=== PATIENT | female | born 1955 | race Caucasian/White ===

== ENCOUNTER 2016-07-06 13:04 | Outpatient (CLI) | payer OTHER | END 2016-07-06 13:05 | disposition home or self-care (01) | DX: M81.0 Age-related osteoporosis without current pathological fracture (principal) ==

== ENCOUNTER 2016-07-06 13:05 | Outpatient (CLI) | payer OTHER | END 2016-07-06 13:06 | disposition home or self-care (01) | DX: Z12.31 Encounter for screening mammogram for malignant neoplasm of breast (principal); Z80.3 Family history of malignant neoplasm of breast ==

== ENCOUNTER 2016-09-03 11:36 | Outpatient (CLI) | payer OTHER | END 2016-09-03 11:37 | disposition home or self-care (01) | DX: M81.0 Age-related osteoporosis without current pathological fracture (principal); Z79.899 Other long term (current) drug therapy ==

== ENCOUNTER 2018-01-10 08:51 | Outpatient (CLI) | payer OTHER ==
--- NOTE | 2018-01-13 13:04 | Mammography Report ---
Procedure Date: 01/10/2018 Accession Number: [id number] / [id number] Procedure: MGN - Screening Mammo Dig Bilat CPT Code: FULL RESULT: EXAM: Screening Mammo Dig Bilat DATE: 01/10/2018 9:17 AM CLINICAL HISTORY: 62-year-old female with family history of breast cancer in the mother at age 64, the aunt at age 40. TECHNIQUE: Bilateral CC and MLO views were obtained. Left exaggerated CC view was also obtained. COMPARISON: 07/06/2016, 1 62,015, 12/24/2011, 12/07/2009. FINDINGS: The breasts demonstrate heterogeneously dense fibroglandular parenchyma bilaterally. No suspicious masses, clustered microcalcifications, or regions of architectural distortion are identified. IMPRESSION: Negative examination RECOMMENDATION: Routine annual screening unless otherwise clinically indicated. BIRADS CATEGORY 1: Negative STANDARD QUALIFYING STATEMENTS: 1. This examination was reviewed with the aid of Computer-Aided Detection (CAD). 2. A negative or benign imaging report should not delay biopsy if clinically suspicious findings are present. Consider surgical consultation if warrented. More than 5% of cancers are not identified by imaging. 3. Dense breasts may obscure an underlying neoplasm.
== END 2018-01-10 08:52 | disposition home or self-care (01) ==
LOC: DI.N 08:51
PROVIDERS: ATTEND Family Medicine
DX: Z12.31 Encounter for screening mammogram for malignant neoplasm of breast (principal); Z80.3 Family history of malignant neoplasm of breast
CPT/HCPCS: 77067

== ENCOUNTER 2018-09-03 08:00 | Outpatient (CLI) | payer OTHER ==
[2018-09-03 13:15] LABS: BASOPHILS # (AUTO) 0.1 10^3/uL (0.0-0.1); BASOPHILS % (AUTO) 1.1 %; EOSINOPHILS # (AUTO) 0.1 10^3/uL (0.0-0.7); EOSINOPHILS % (AUTO) 1.8 %; HGB - HEMOGLOBIN 15.4 g/dL (12.0-16.0); LYMPHOCYTES # (AUTO) 1.4 10^3/uL (1.5-3.5); LYMPHOCYTES % (AUTO) 21.4 %; MEAN CORPUSCULAR HEMOGLOBIN 28.3 pg (27.0-31.0); MEAN CORPUSCULAR HGB CONC 33.5 g/dL (32.0-36.0); MEAN CORPUSCULAR VOLUME 84.3 fL (81.0-99.0); MEAN PLATELET VOLUME 8.6 fL (7.9-10.8); MONOCYTES # (AUTO) 0.6 10^3/uL (0.0-1.0); MONOCYTES % (AUTO) 8.6 %; NEUTROPHILS # (AUTO) 4.5 10^3/uL (1.5-6.6); NEUTROPHILS % (AUTO) 67.1 %; PLT - PLATELET COUNT 305 10^3/uL (130-450); RED BLOOD COUNT 5.45 10^6/uL (4.20-5.40); RED CELL DISTRIBUTION WIDTH 13.3 % (12.0-15.0); WHITE BLOOD COUNT 6.8 x10^3/uL (4.8-10.8)
[2018-09-03 13:47] LABS: ALBUMIN 4.1 g/dL (3.2-5.5); ALBUMIN/GLOBULIN RATIO 1.1 (1.0-2.2); ALKALINE PHOSPHATASE 71 IU/L (42-121); ALT ALANINE AMINOTRANSFERASE 17 IU/L (10-60); AST ASPARTATE AMINOTRANSFERASE 23 IU/L (10-42); BILIRUBIN,TOTAL 0.8 mg/dL (0.2-1.0); BUN - BLOOD UREA NITROGEN 18 mg/dL (6-20); CALCIUM 10.6 mg/dL (8.5-10.3); CARBON DIOXIDE - CO2 28 mmol/L (21-32); CHLORIDE 98 mmol/L (101-111); CHOL/HDL RATIO 3.1 (<4.4); CHOLESTEROL 205 mg/dL; CREATININE 0.6 mg/dL (0.4-1.0); GFR - MDRD 101 (>89); GLUCOSE 95 mg/dL (70-100); HDL CHOLESTEROL 67 mg/dL; LDL CHOLESTEROL,CALCULATED 114 mg/dL; LDL/HDL RATIO 1.7 (<4.4); SODIUM 137 mmol/L (135-145); VLDL CHOLESTEROL 24 mg/dL
== END 2018-09-03 23:59 | disposition home or self-care (01) ==
LOC: LAB.WCP 08:00
PROVIDERS: ATTEND Nurse Practitioner
DX: E78.5 Hyperlipidemia, unspecified (principal); I10 Essential (primary) hypertension
CPT/HCPCS: 36415; 80053; 80061; 83721; 85025

== ENCOUNTER 2018-09-12 08:00 | Outpatient (CLI) | payer OTHER | END 2018-09-12 23:59 | disposition home or self-care (01) | LOC: LAB.WCP 08:00 | PROVIDERS: ATTEND Nurse Practitioner | DX: R25.2 Cramp and spasm (principal); E83.52 Hypercalcemia | CPT/HCPCS: 36415; 82310; 83970 ==

== ENCOUNTER 2018-10-08 09:45 | Outpatient (CLI) | payer OTHER ==
--- NOTE | 2018-10-08 11:41 | XRAY Report ---
Reason: HIP PAIN,RIGHT/LEFT Procedure Date: 10/08/2018 Accession Number: [id number] / [id number] Procedure: WCP - Hip BILAT CPT Code: FULL RESULT: EXAM: BILATERAL HIP RADIOGRAPHY EXAM DATE: 10/08/2018 10:00 AM. CLINICAL HISTORY: Hip pain, bilateral. COMPARISON: None. TECHNIQUE: 2 views each. FINDINGS: Bones: Normal. No fractures or bone lesion. Right Hip: No dislocation. The hip joint space is mildly narrowed. Left Hip: No dislocation. The hip joint space is mildly narrowed. Soft Tissues: Normal. No soft tissue swelling. IMPRESSION: Mild bilateral degenerative hip disease, relatively symmetric. RADIA
== END 2018-10-08 09:46 | disposition home or self-care (01) ==
LOC: DI.WCP 09:45
PROVIDERS: ATTEND Family Medicine
DX: M16.0 Bilateral primary osteoarthritis of hip (principal)
CPT/HCPCS: 73521

== ENCOUNTER 2019-01-16 14:16 | Outpatient (CLI) | payer OTHER ==
--- NOTE | 2019-01-19 11:35 | Mammography Report ---
Reason: SCREENING MAMMO Procedure Date: 01/16/2019 Accession Number: [id number] / [id number] Procedure: MGN - Screening Mammo Dig Bilat CPT Code: FULL RESULT: EXAM: Screening Mammo Dig Bilat DATE: 01/16/2019 2:39 PM CLINICAL HISTORY: Routine screening. No reported personal history of breast cancer. Family history of breast cancer in mother at age 70 and aunt age 40. TECHNIQUE: (B) - Bilateral CC and MLO views were obtained. COMPARISON: 01/10/2018 through 12/24/2011 PARENCHYMAL PATTERN: (A) - The breasts demonstrate scattered fibroglandular densities bilaterally. FINDINGS: Bilateral breasts: There are no suspicious masses, calcifications, or areas of distortion. IMPRESSION: Negative examination. BI-RADS category 1. RECOMMENDATION: (ANNUAL) - Recommend routine annual screening mammography. BI-RADS CATEGORY: (1) - Negative. STANDARD QUALIFYING STATEMENTS: 1. This examination was not reviewed with the aid of Computer-Aided Detection (CAD). 2. A negative or benign imaging report should not preclude biopsy if clinically suspicious findings are present. 3. Dense breasts may obscure an underlying neoplasm. 4. This examination was reviewed without the aid of 3D breast imaging (tomosynthesis).
== END 2019-01-16 14:17 | disposition home or self-care (01) ==
LOC: DI.N 14:16
DX: Z12.31 Encounter for screening mammogram for malignant neoplasm of breast (principal); Z80.3 Family history of malignant neoplasm of breast
CPT/HCPCS: 77067

== ENCOUNTER 2019-03-17 11:47 | Outpatient (CLI) | payer OTHER ==
[2019-03-17] MEDS ORDERED: IOVERSOL 320 100 ML VIAL IVP ONE ×2 (12:02→13:16)
[2019-03-17 12:49] LABS: CALCIUM 10.6 mg/dL (8.5-10.3); CREATININE 0.7 mg/dL (0.4-1.0)
--- NOTE | 2019-03-17 14:15 | CT Report ---
Reason: VERTIGO OF CENTRAL ORIGIN, NAUSEA AND VOMITING Procedure Date: 03/17/2019 Accession Number: [id number] / [id number] Procedure: CT - ANGIO HEAD W/WO CPT Code: FULL RESULT: EXAM: CT ANGIOGRAM HEAD. CT SCAN OF THE HEAD WITHOUT AND WITH CONTRAST. EXAM DATE: 03/17/2019 01:13 PM CLINICAL HISTORY: 63-year-old woman with vertigo of central origin and nausea and vomiting. COMPARISON: None. TECHNIQUE: - CT Scan Head: Using a multidetector scanner, axial images were acquired from the foramen magnum to the skull vertex prior to and following contrast administration. - CT Angiogram: Using a multidetector scanner, high-resolution axial images were acquired from the skull base through vertex following rapid infusion of intravenous contrast. Reformats: Multiplanar MIP reformats were reconstructed. Nascet criteria used for stenosis measurement. IV Contrast: OPTI 320 80ML. In accordance with CT protocol optimization, one or more of the following dose reduction techniques were utilized for this exam: automated exposure control, adjustment of mA and/or KV based on patient size, or use of iterative reconstructive technique. FINDINGS: NONCONTRAST HEAD: Parenchyma: No evidence of acute infarct, hemorrhage, or mass lesion. Parenchyma demonstrates normal attenuation characteristics. Ventricles and Extra-axial Spaces: Ventricles are symmetric and normal in size for age. No extra-axial hemorrhage or fluid collection. Orbits: Unremarkable. Sinuses: The left maxillary sinus is completely opacified and there is hyperostosis of the surrounding blackwell, consistent with chronic sinusitis. Opacification extends into the nasal sinus and ethmoid air cells. Mastoid air cells are clear. Extracranial Soft Tissues and Bones: Soft tissues are unremarkable. No fractures. CTA HEAD: RIGHT: - Visualized Internal Carotid: Patent without significant stenosis or aneurysm. No evidence of atherosclerotic plaque along the siphon. - Anterior Cerebral: Patent without significant stenosis or aneurysm. - Middle Cerebral: Patent without significant stenosis or aneurysm. - Posterior Cerebral: Patent without significant stenosis or aneurysm. - Posterior Communicating: Not well seen. - Visualized Vertebral: Patent without significant stenosis or dissection. LEFT: - Visualized Internal Carotid: Patent without significant stenosis or aneurysm. No evidence of atherosclerotic plaque along the siphon. - Anterior Cerebral: Patent without significant stenosis or aneurysm. - Middle Cerebral: Patent without significant stenosis or aneurysm. - Posterior Cerebral: Patent without significant stenosis or aneurysm. - Posterior Communicating: Not well seen. - Visualized Vertebral: Patent without significant stenosis or dissection. CENTRAL: - Anterior Communicating: Patent. No aneurysm. - Basilar: Patent without significant stenosis, dissection, or aneurysm. POSTCONTRAST HEAD: No abnormal enhancement. IMPRESSION: CT Head: 1. No acute intracranial abnormality. Specifically, no evidence of acute infarct, hemorrhage, or mass lesion. 2. Chronic sinusitis centered in the left maxillary sinus. CTA Head: 1. Normal. No large vessel occlusion, significant vascular stenosis, or aneurysm. RADIA The call report notification system was initiated by Dr. Hector Padilla at 02:09 PM on 03/17/2019.
--- NOTE | 2019-03-17 14:16 | CT Report ---
Reason: VERTIGO OF CENTRAL ORIGIN, NAUSEA AND VOMITING Procedure Date: 03/17/2019 Accession Number: [id number] / [id number] Procedure: CT - ANGIO NECK W CPT Code: FULL RESULT: EXAM: CT ANGIOGRAM NECK EXAM DATE: 03/17/2019 01:13 PM. CLINICAL HISTORY: 63-year-old woman with vertigo of central origin and nausea and vomiting. COMPARISON: None. TECHNIQUE: Routine axial helical imaging was performed from the skull base through the aortic arch. Reconstructions: Routine multiplanar 3D MIP reconstructions. IV Contrast: OPTI 320 80ML. Evaluation of arterial stenosis is based on a NASCET method of measurement. In accordance with CT protocol optimization, one or more of the following dose reduction techniques were utilized for this exam: automated exposure control, adjustment of mA and/or KV based on patient size, or use of iterative reconstructive technique. FINDINGS: RIGHT: - Common and Internal Carotid: Patent without signficant stenosis. There is mild calcified atherosclerotic plaque at the bifurcation and along the siphon. Stenosis by NASCET criteria: 0%. No evidence of dissection. No evidence of aneurysm along intracranial ICA. - External Carotid: Unremarkable. - Vertebral: Patent without significant stenosis. No evidence of dissection. LEFT: - Common and Internal Carotid: Patent without signficant stenosis. There is mild calcified atherosclerotic plaque at the bifurcation and along the siphon. Stenosis by NASCET criteria: Approximately 30%. No evidence of dissection. No evidence of aneurysm along intracranial ICA. - External Carotid: Unremarkable. - Vertebral: Patent without significant stenosis. No evidence of dissection. SOFT TISSUES AND BONES: Visualized soft tissues are unremarkable. Lung apices are clear. No evidence of acute fracture or malalignment of the cervical spine. Multilevel degenerative changes of the cervical spine are demonstrated, greatest at C5-C6 and, to a lesser extent, C6-C7 where posterior osteophytes result in up to moderate narrowing of central canal. IMPRESSION: 1. Carotid and vertebral arteries are patent without significant stenosis or dissection. RADIA The call report notification system was initiated by Dr. Hector Padilla at 02:15 PM on 03/17/2019. ADDENDUM: 03/17/19 15:13 Dr Mendes could not be reached on the afternoon of 03/17/2019.
== END 2019-03-17 11:48 | disposition home or self-care (01) ==
LOC: DI 11:47
PROVIDERS: ATTEND Physician Assistant
DX: J32.0 Chronic maxillary sinusitis (principal); H81.4 Vertigo of central origin; R11.2 Nausea with vomiting, unspecified
CPT/HCPCS: 36415; 70496; 70498; 80048; Q9967

== ENCOUNTER 2019-04-07 11:16 | Outpatient (CLI) | payer OTHER ==
--- NOTE | 2019-04-08 09:22 | XRAY Report ---
Reason: RIGHT CERVICAL RADICULOPATHY Procedure Date: 04/07/2019 Accession Number: [id number] / [id number] Procedure: WCP - Cervical Spine 2 View CPT Code: Final Report FULL RESULT: EXAM: CERVICAL SPINE RADIOGRAPHY EXAM DATE: 04/07/2019 11:16 AM. CLINICAL HISTORY: RIGHT CERVICAL RADICULOPATHY. COMPARISONS: NECK ANGIO 03/17/2019 1:02 PM. TECHNIQUE: 3 views. FINDINGS: Alignment: Normal. No spondylolisthesis or scoliosis. Bones: The cervical vertebral bodies and posterior elements are well visualized from the skull base through C7-T1. No fractures or bone lesions. Disks: Moderate joint space narrowing with osteophytes at C5-C6 and C6-C7. Mild joint space narrowing at C4-C5. Facets: Multilevel moderate degenerative facet hypertrophy is evident. Soft Tissues: Vascular calcifications in the carotid arteries.. No prevertebral soft tissue swelling. The visualized lung apices are clear. IMPRESSION: 1. No acute cervical spine fractures. 2. Degenerative changes in the cervical spine as described above. RADIA
== END 2019-04-07 23:59 | disposition home or self-care (01) ==
LOC: DI.WCP 11:16
PROVIDERS: ATTEND Family Medicine
DX: M50.10 Cervical disc disorder with radiculopathy, unspecified cervical region (principal); M48.02 Spinal stenosis, cervical region; M25.78 Osteophyte, vertebrae
CPT/HCPCS: 72040

== ENCOUNTER 2020-05-05 10:48 | Emergency (ER) | payer OTHER ==
[2020-05-05 11:14] LABS: BASOPHILS % (AUTO) 0.5 %; EOSINOPHILS % (AUTO) 0.5 %; HGB - HEMOGLOBIN 15.1 g/dL (12.0-16.0); LYMPHOCYTES # (AUTO) 1.7 10^3/uL (1.5-3.5); LYMPHOCYTES % (AUTO) 21.8 %; MEAN CORPUSCULAR HEMOGLOBIN 26.5 pg (27.0-31.0); MEAN CORPUSCULAR HGB CONC 32.9 g/dL (32.0-36.0); MEAN CORPUSCULAR VOLUME 80.5 fL (81.0-99.0); MEAN PLATELET VOLUME 9.1 fL (7.9-10.8); MONOCYTES # (AUTO) 0.9 10^3/uL (0.0-1.0); MONOCYTES % (AUTO) 10.9 %; NEUTROPHILS # (AUTO) 5.1 10^3/uL (1.5-6.6); PLT - PLATELET COUNT 323 10^3/uL (130-450); RED CELL DISTRIBUTION WIDTH 14.4 % (12.0-15.0); WHITE BLOOD COUNT 7.8 x10^3/uL (4.8-10.8)
[2020-05-05 11:16] LABS: GLUCOSE, URINE (UA) NEGATIVE (NEGATIVE); KETONES,URINE (UA) TRACE mg/dL (NEGATIVE); LEUKOCYTE ESTERASE, URINE TRACE (NEGATIVE); NITRITE,URINE NEGATIVE (NEGATIVE); OCCULT BLOOD,URINE TRACE-INTA (NEGATIVE); PROTEIN,URINE 30 mg/dL (NEGATIVE); UROBILINOGEN,URINE 0.2 (NORMAL) E.U./dL (NORMAL)
[2020-05-05 11:22] LABS: CLARITY,URINE CLEAR (CLEAR)
[2020-05-05 11:26] LABS: BILIRUBIN,URINE NEGATIVE (NEGATIVE); ICTOTEST,URINE NEGATIVE
[2020-05-05 11:27] LABS: ALBUMIN 4.6 g/dL (3.2-5.5); ALBUMIN/GLOBULIN RATIO 1.1 (1.0-2.2); BILIRUBIN,TOTAL 0.7 mg/dL (0.2-1.0); CALCIUM 10.7 mg/dL (8.5-10.3); CREATININE 0.7 mg/dL (0.4-1.0); TOTAL PROTEIN 8.9 g/dL (6.7-8.2)
[2020-05-05] MEDS ORDERED: IOVERSOL 320 100 ML VIAL IVP ONE ×2 (11:34→13:32)
--- NOTE | 2020-05-05 11:39 | ED Physician Documentation ---
PD HPI ABD PAIN - Stated complaint Stated Complaint: STOMACH PX - Chief complaint Chief Complaint: Abd Pain - History obtained from History obtained from: Patient - History of Present Illness Timing - onset: How many days ago (2) Timing - duration: Days (2) Timing - details: Abrupt onset Pain level max: 4 Pain level now: 3 Quality: Aching Location: LLQ Radiation: No: Chest, , Lower back, Left flank, Left shoulder, Right flank, Right shoulder, Upper back Associated symptoms: Nausea. No: Fever, Vomiting, Hematemesis, Diarrhea, Constipation, Melena, Hematochezia, Dysuria Recently seen: Not recently seen - Additional information Additional information: 65-year-old female presents to the emergency department with left lower quadrant abdominal pain for the past 2 days. Nothing makes it better or worse. Described mostly as an aching pain. Nonradiating. Nothing makes it better or worse. No fever some nausea no vomiting. No diarrhea or no urinary symptoms. No vaginal bleeding. Review of Systems Constitutional: denies: Fever, Chills GI: denies: Vomiting, Diarrhea Skin: denies: Rash Musculoskeletal: denies: Neck pain, Back pain Neurologic: denies: Headache PD PAST MEDICAL HISTORY - Past Medical History Past Medical History: Yes Cardiovascular: Hypertension Respiratory: Sleep apnea Neuro: Other GI: GERD, Hiatal hernia, Cholelithiasis RECONDITIONING ASSOCIATE: None : Incontinence HEENT: None Psych: None Musculoskeletal: None Derm: None Other Past Medical History: Vertigo - Past Surgical History General: Cholecystectomy, EGD, Other - Present Medications Home Medications: Ambulatory Orders Medication Instructions Recorded Confirmed Felodipine [Felodipine ER] 2.5 mg PO DAILY 03/05/16 03/05/16 Tolterodine Tartrate [Detrol LA] 4 mg PO DAILY 03/05/16 03/05/16 diphenhydrAMINE [Benadryl] 25 mg PO ONCE PRN 03/05/16 03/05/16 raNITIdine [Zantac] 75 mg PO DAILY 03/05/16 03/05/16 - Allergies Allergies/Adverse Reactions: Allergies Allergy/AdvReac Type Severity Reaction Status Date / Time No Known Drug Allergies Allergy Verified 03/05/16 11:42 - Social History Does the pt smoke?: No Smoking Status: Never smoker Does the pt drink ETOH?: Yes Does the pt have substance abuse?: No - Immunizations Immunizations are current?: Yes PD ED PE NORMAL - Vitals Vital signs reviewed: Yes - General General: Alert and oriented X 3, No acute distress - HEENT HEENT: Moist mucous membranes - Neck Neck: Supple, no meningeal sign - Cardiac Cardiac: RRR - Respiratory Respiratory: No respiratory distress, Clear bilaterally - Abdomen Abdomen: Soft, Non tender, Non distended - Back Back: No CVA TTP - Derm Derm: Warm and dry - Neuro Neuro: Alert and oriented X 3 - Psych Psych: Normal mood, Normal affect Results - Vitals Vitals: Vital Signs - 24 hr 05/05/20 05/05/20 10:51 13:03 Temperature 37.1 C Heart Rate 86 81 Respiratory 16 18 Rate Blood Pressure 158/85 H 176/86 H O2 Saturation 95 98 Oxygen O2 Source Room air - Labs Labs: Laboratory Tests 05/05/20 05/05/20 05/05/20 11:01 11:09 11:09 WBC 7.8 RBC 5.70 H Hgb 15.1 Hct 45.9 MCV 80.5 L MCH 26.5 L MCHC 32.9 RDW 14.4 Plt Count 323 MPV 9.1 Neut # (Auto) 5.1 Lymph # (Auto) 1.7 [place] # (Auto) 0.9 Eos # (Auto) 0.0 Baso # (Auto) 0.0 Absolute Nucleated RBC 0.00 Nucleated RBC % 0.0 Sodium 137 Potassium 4.0 Chloride 99 L Carbon Dioxide 26 Anion Gap 12.0 BUN 17 Creatinine 0.7 Estimated GFR (MDRD) 84 L Glucose 116 H Calcium 10.7 H Total Bilirubin 0.7 AST 20 ALT 17 Alkaline Phosphatase 86 Total Protein 8.9 H Albumin 4.6 Globulin 4.3 H Albumin/Globulin Ratio 1.1 Lipase 28 Urine Color DARK YELLOW Urine Clarity CLEAR Urine pH 6.0 Ur Specific [place] >=1.030 H Urine Protein 30 H Urine Glucose (UA) NEGATIVE Urine Ketones TRACE Urine Occult Blood TRACE-INTA Urine Nitrite NEGATIVE Urine Bilirubin NEGATIVE Urine Urobilinogen 0.2 (NORMAL) Ur Leukocyte Esterase TRACE H Urine RBC 0-5 Urine WBC 0-3 Ur Squamous Epith Cells FEW Squamous Urine Crystals 3-5 Calcium Oxalate Urine Bacteria Few Urine Mucus Few Strands Ur Microscopic Review INDICATED Urine Culture Comments INDICATED - Rads (name of study) CT abd/pelvis Radiology: Prelim report reviewed, EMP read contemporaneously, See rad report PD MEDICAL DECISION MAKING - ED course Complexity details: reviewed results, re-evaluated patient, considered differential, d/w patient ED course: 65-year-old female with abdominal pain. Appears to have a heterogeneously enhancing mass in the left kidney, suspicious for renal cell carcinoma. Discussed with her PCP, Dr. Alex Greene who will follow-up closely with the patient and arrange urgent follow-up. Patient is well-appearing, nontoxic. Afebrile. Patient counseled regarding signs and symptoms for which I believe and urgent re-evaluation would be necessary. Patient with good understanding of and agreement to plan and is comfortable going home at this time This document was made in part using voice recognition software. While efforts are made to proofread this document, sound alike and grammatical errors may occur. CT Abd/pelvis 1. A 7.4 x 5.6 x 5.7 cm heterogeneously enhancing mass in the inferior pole of the left kidney is highly suspicious for renal cell carcinoma. No significantly enlarged lymph nodes are identified. 2. No acute abnormality is identified in the abdomen or pelvis. 3. Moderate hiatal hernia. Departure - Departure Clinical Impression: Renal mass, left Condition: Good Instructions: ED Abdominal Pain Unkn Cause Follow-Up: Alex Greene DO [Primary Care Provider] - Comments: I spoke with Dr. Greene today. She will likely see you on Saturday in clinic to arrange follow-up for the renal mass. The clinic should call you for an appointment, but if you do not hear from them by tomorrow late morning, please call the clinic. 1. A 7.4 x 5.6 x 5.7 cm heterogeneously enhancing mass in the inferior pole of the left kidney is highly suspicious for renal cell carcinoma. No significantly enlarged lymph nodes are identified. 2. No acute abnormality is identified in the abdomen or pelvis. 3. Moderate hiatal hernia.
[2020-05-05 11:52] LABS: BACTERIA,URINE Few /HPF (None Seen); MUCUS,URINE Few Strands; RBC,URINE 0-5 /HPF (0-5); SQUAMOUS EPITHELIAL CELL,UR FEW Squamous (<= Few)
[2020-05-05 11:53] LABS: CRYSTALS,URINE 3-5 Calcium Oxalate /LPF
--- NOTE | 2020-05-05 12:08 | CT Report ---
PROCEDURE: Abdomen/Pelvis W INDICATIONS: LLQ pain CONTRAST: IV CONTRAST: Optiray 320 ml: 100 PO CONTRAST: *NO PO CONTRAST TECHNIQUE: After the administration of intravenous contrast, 5 mm thick sections acquired from the diaphragms to the symphysis. 5 mm thick coronal and sagittal reformats were acquired. For radiation dose reducti on, the following was used: automated exposure control, adjustment of mA and/or kV according to malinda ent size. COMPARISON: None. FINDINGS: Image quality: Excellent. ABDOMEN: Lung bases: Lung bases are clear. Heart size is normal. Solid organs: Liver and spleen are normal in size and enhancement. Gallbladder is surgically absent . Biliary system is non dilated. Pancreas enhances normally. No adrenal nodules. A heterogeneously enhancing mass is seen in the mid to inferior pole of the left kidney measuring approximately 7.4 x 5.6 x 5.7 cm, highly suspicious for renal cell carcinoma. No involvement of the left renal vein is se en. The mass extends to the level of the perirenal fascia posterolaterally without definite involveme nt. Peritoneum and bowel: There is a moderate hiatal hernia. Bowel loops demonstrate normal wall thickne ss and caliber. No free fluid or air. Nodes and vessels: No retroperitoneal or mesenteric adenopathy by size criteria. Aorta and inferior vena cava are normal in size. Mild atherosclerotic calcifications are seen in the aorta. Miscellaneous: There is a small fat-containing periumbilical hernia. PELVIS: Genitourinary: Bladder wall thickness is normal. The uterus is normal in size. No adnexal mass is s een. Miscellaneous: No inguinal hernias or adenopathy. Bones: No suspicious bony lesions. No vertebral body compression fractures. IMPRESSION: 1. A 7.4 x 5.6 x 5.7 cm heterogeneously enhancing mass in the inferior pole of the left kidney is hi ghly suspicious for renal cell carcinoma. No significantly enlarged lymph nodes are identified. 2. No acute abnormality is identified in the abdomen or pelvis. 3. Moderate hiatal hernia. Reviewed by: Scott Hunt MD on 05/05/2020 11:06 AM [facility] Approved by: Scott Hunt MD on 05/05/2020 11:06 AM [facility] Station ID: [id number]
[2020-05-05 13:05] VITALS: BP 176/86
== END 2020-05-05 13:38 | disposition home or self-care (01) ==
LOC: ED 10:48
DX: N28.89 Other specified disorders of kidney and ureter (principal); K44.9 Diaphragmatic hernia without obstruction or gangrene; I10 Essential (primary) hypertension
CPT/HCPCS: 36415; 74177; 80053; 81001; 83690; 85025; 87086; 99284; Q9967; 81003

== ENCOUNTER 2020-05-18 11:49 | Outpatient (CLI) | payer OTHER ==
[2020-05-18] MEDS ORDERED: IOVERSOL 320 100 ML VIAL IVP ONE ×2 (12:02→18:30)
--- NOTE | 2020-05-18 15:06 | CT Report ---
PROCEDURE: CHEST W INDICATIONS: LEFT KIDNEY MASS, STAGING CONTRAST: IV CONTRAST: Optiray 320 ml: 100 PO CONTRAST: *NO PO CONTRAST TECHNIQUE: After the administration of intravenous contrast, 5 mm thick sections acquired from the pulmonary api arlene to the posterior costophrenic angles. 7 mm thick coronal MIP reformats were acquired. For radia tion dose reduction, the following was used: automated exposure control, adjustment of mA and/or kV according to patient size. COMPARISON: Abdomen/pelvis CT with contrast performed 05/05/2020 reviewed, which identified a large l eft exophytic renal mass. FINDINGS: Image quality: Excellent. Lungs and pleura: No acute air space opacities. Note is made of a small 5 x 7 mm subpleural nodule within the lateral segment right middle lobe, seen anterolaterally on CT series 4 image 204. No addit ional nodule is seen throughout the lung parenchyma. No pleural effusions or pneumothorax. Central a nd peripheral airways are patent and normal in caliber. Mediastinum: Heart size is normal. No pericardial effusion. No mediastinal or hilar adenopathy by size criteria. Thoracic aorta and central pulmonary arteries are normal in size. Esophagus is kendy l in caliber. No hiatal hernia. Bones and chest wall: No suspicious bony lesions. No vertebral body compression fractures. No axil tawny or supraclavicular adenopathy by size criteria. Thyroid gland appears normal. Abdomen: Visualized upper abdominal solid organs appear normal. Upper abdominal bowel loops are nor mal in caliber. The large mass previously documented exophytic from the lower left kidney is only pa rtially included on this study, and note is made of surrounding recruited arterial and venous structu res in the perirenal fat and above. IMPRESSION: Single far peripheral right middle lobe 5 x 7 mm nodule abutting the pleural surface is noted, as a p otential metastatic focus within the lung parenchyma, but no definite metastatic disease is present. Attention to this small nodule on follow-up CT scanning is anticipated. This study is optimized for chest visualization to complete staging CT workup-prior CT targeted to th e abdomen and pelvis was performed 05/05/2020. Reviewed by: Johnny Chandra MD on 05/18/2020 3:04 PM PST Approved by: Johnny Chandra MD on 05/18/2020 3:04 PM PST Station ID: [id number]
== END 2020-05-18 11:50 | disposition home or self-care (01) ==
LOC: DI 11:49
PROVIDERS: ATTEND Urology
DX: N28.89 Other specified disorders of kidney and ureter (principal); R91.1 Solitary pulmonary nodule
CPT/HCPCS: 71260; Q9967

== ENCOUNTER 2020-07-22 16:27 | Emergency (ER) | payer OTHER ==
[2020-07-22 16:33] VITALS: BP 175/70
--- NOTE | 2020-07-22 16:41 | ED Physician Documentation ---
PD HPI LOWER EXT INJURY - Stated complaint Stated Complaint: RIGHT ANKLE INJURY - Chief complaint Chief Complaint: Trauma Ext - History obtained from History obtained from: Patient - History of Present Illness Timing - onset: Today (She was letting her dog out and slipped and inverted the right ankle. Minor pain at rest but more significant if she tries to walk. No other injuries. 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 TESTER: None : Incontinence HEENT: None Psych: None Musculoskeletal: None Derm: None - Past Surgical History General: Cholecystectomy, EGD, Other - Present Medications Home Medications: Ambulatory Orders Medication Instructions Recorded Confirmed Felodipine [Felodipine ER] 2.5 mg PO DAILY 03/05/16 07/22/20 Tolterodine Tartrate [Detrol LA] 4 mg PO DAILY 03/05/16 07/22/20 diphenhydrAMINE [Benadryl] 25 mg PO ONCE PRN 03/05/16 07/22/20 - Allergies Allergies/Adverse Reactions: Allergies Allergy/AdvReac Type Severity Reaction Status Date / Time No Known Drug Allergies Allergy Verified 07/22/20 16:34 - Social History Does the pt smoke?: No Smoking Status: Never smoker Does the pt drink ETOH?: Yes Does the pt have substance abuse?: No - Immunizations Immunizations are current?: Yes PD ED PE NORMAL - Vitals Vital signs reviewed: Yes - General General: Alert and oriented X 3, No acute distress - HEENT HEENT: PERRL, EOMI - Neck Neck: Supple, no meningeal sign, No bony TTP - Extremities Extremities: Other (She is tender over the lateral malleolus of the right ankle as well as the proximal fifth metatarsal. There is swelling over the lateral malleolus. No medial tenderness. No knee or proximal fibular tenderness.) - Neuro Neuro: Alert and oriented X 3, Normal speech Results - Vitals Vitals: Vital Signs - 24 hr 07/22/20 16:30 Temperature 37.1 C Heart Rate 79 Respiratory 16 Rate Blood Pressure 175/70 H O2 Saturation 99 Oxygen O2 Source Room air - Rads (name of study) R ankle and R foot XRs Radiology: EMP read contemporaneously Departure - Departure Disposition: 01 Home, Self Care Clinical Impression: Ankle injury Qualifiers: Encounter type: initial encounter Laterality: right Qualified Code(s): S99.911A - Unspecified injury of right ankle, initial encounter Condition: Good Record reviewed to determine appropriate education?: Yes Instructions: ED Sprain Ankle Comments: Tylenol as needed and ice/elevate for pain. Followup with your doctor in 1 week if not better. You can wear the Aircast as needed for comfort but it is fine to come off for bathing etc. Discharge Date/Time: 07/22/20 17:34
--- NOTE | 2020-07-22 17:14 | XRAY Report ---
PROCEDURE: Ankle 3 View RT INDICATIONS: FOOT / ANKLE INJ TECHNIQUE: 3 views of the ankle were acquired. COMPARISON: None FINDINGS: Bones: No fractures or dislocations. Ankle mortise is normally aligned. No suspicious bony lesions . Soft tissues: No tibiotalar joint effusion. Achilles tendon appears normal. IMPRESSION: No osseous trauma found. Source of new pain is not seen. Mild soft tissue thickening ove r the lateral malleolus. The tendon inflammation or blunt trauma injury could explain that appearance . Reviewed by: Johnny Chandra MD on 07/22/2020 5:12 PM PST Approved by: Johnny Chandra MD on 07/22/2020 5:12 PM PST Station ID: [id number]
--- NOTE | 2020-07-22 17:15 | XRAY Report ---
PROCEDURE: Foot 3 View RT INDICATIONS: FOOT / ANKLE INJ TECHNIQUE: 3 views of the foot were acquired. COMPARISON: None FINDINGS: Bones: No fractures or dislocations. No suspicious bony lesions. Soft tissues: No tibiotalar joint effusion. Achilles tendon appears normal. Note is made of a slig ht cortical prominence at the lateral border of the base of the fifth metatarsal bone, but the 2 view s that show this indicate no evidence of trauma as the underlying cause. IMPRESSION: No trauma found. Reviewed by: Johnny Chandra MD on 07/22/2020 5:13 PM PST Approved by: Johnny Chandra MD on 07/22/2020 5:13 PM PST Station ID: [id number]
== END 2020-07-22 17:34 | disposition home or self-care (01) ==
LOC: ED 16:27
DX: S99.911A Unspecified injury of right ankle, initial encounter (principal); X50.1XXA Overexertion from prolonged static or awkward postures, initial encounter; Y93.01 Activity, walking, marching and hiking; I10 Essential (primary) hypertension
CPT/HCPCS: 99282; 99283

== ENCOUNTER 2020-09-08 08:00 | Outpatient (CLI) | payer OTHER ==
--- NOTE | 2020-09-08 14:26 | XRAY Report ---
PROCEDURE: Ankle 3 View RT INDICATIONS: LATERAL MALLEOLUS Fx TECHNIQUE: 3 views of the ankle were acquired. COMPARISON: 07/22/2020 FINDINGS: Bones: Subtle cortical irregularity involving lateral cortex of distal lateral malleolus with subtle radiolucency is seen consistent with healing nondisplaced lateral malleolus fracture. No new fracture or dislocation. Ankle mortise is normally aligned. No suspicious bony lesions. Soft tissues: No tibiotalar joint effusion. Achilles tendon appears normal. IMPRESSION: Subacute appearing nondisplaced healing nondisplaced lateral malleolus fracture with int act ankle mortise. No new fracture or dislocation. Reviewed by: Yunior Voss MD on 09/08/2020 2:24 PM PDT Approved by: Yunior Voss MD on 09/08/2020 2:24 PM PDT Station ID: [id number]
== END 2020-09-08 23:59 | disposition home or self-care (01) ==
LOC: DI.N 08:00
PROVIDERS: ATTEND Orthopaedic Surgery
DX: S82.64XD Nondisplaced fracture of lateral malleolus of right fibula, subsequent encounter for closed fracture with routine healing (principal)

== ENCOUNTER 2020-09-28 11:26 | Outpatient (CLI) | payer OTHER ==
[2020-09-28] MEDS ORDERED: IOPAMIDOL-300 50 ML VIAL ONE (11:37)
[2020-09-28] MEDS ORDERED: IOPAMIDOL-300 100 ML VIAL ONE (11:37)
--- NOTE | 2020-09-28 15:09 | CT Report ---
PROCEDURE: Abdomen/Pelvis W INDICATIONS: KIDNEY CA, L CONTRAST: IV CONTRAST: Isovue 300 ml: 100 PO CONTRAST: Isovue 300 ml50 TECHNIQUE: After the administration of oral and intravenous contrast, 5 mm thick sections acquired from the diap hragms to the symphysis. 5 mm thick coronal and sagittal reformats were acquired. For radiation dos e reduction, the following was used: automated exposure control, adjustment of mA and/or kV accordin g to patient size. COMPARISON: 05/05/2020 FINDINGS: Image quality: Excellent. ABDOMEN: Lung bases: Lung bases are clear. Heart size is normal. Solid organs: Liver and spleen are normal in size and enhancement. Gallbladder is surgically absent . Moderate hiatal hernia. Biliary system is non dilated. Pancreas enhances normally. No adrenal no dules. Interval left nephrectomy. No evidence of residual or recurrent carcinoma in the left renal fo ssa. Peritoneum and bowel: Bowel loops demonstrate normal wall thickness and caliber. No free fluid or a ir. Nodes and vessels: No retroperitoneal or mesenteric adenopathy by size criteria. Aorta and inferior vena cava are normal in size. Miscellaneous: Periumbilical hernia containing fat. PELVIS: Genitourinary: Bladder wall thickness is normal. Miscellaneous: No inguinal hernias or adenopathy. Bones: No suspicious bony lesions. No vertebral body compression fractures. IMPRESSION: 1. Interval left nephrectomy with no evidence of locally recurrent or residual tumor and no evidence of metastatic disease in the abdomen and pelvis. Please refer to a separate report for CT chest findings. Reviewed by: Edson Lopez MD on 09/28/2020 3:08 PM PDT Approved by: Edson Lopez MD on 09/28/2020 3:08 PM PDT Station ID: [id number]
== END 2020-09-28 11:27 | disposition home or self-care (01) ==
LOC: DI 11:26
PROVIDERS: ATTEND Internal Medicine
DX: Z90.5 Acquired absence of kidney (principal); R91.1 Solitary pulmonary nodule; C64.2 Malignant neoplasm of left kidney, except renal pelvis; R91.8 Other nonspecific abnormal finding of lung field; K44.9 Diaphragmatic hernia without obstruction or gangrene; I25.10 Atherosclerotic heart disease of native coronary artery without angina pectoris
CPT/HCPCS: 36415; 71260; 74177; 82565; Q9967

== ENCOUNTER 2020-09-28 11:29 | Outpatient (CLI) | payer OTHER ==
[2020-09-28 11:53] LABS: CREATININE 0.8 mg/dL (0.4-1.0)
[2020-09-28] MEDS ORDERED: IOPAMIDOL-300 100 ML VIAL IVP ONE (16:48)
[2020-09-28] MEDS ORDERED: IOPAMIDOL-300 50 ML VIAL PO ONE (16:48)
--- NOTE | 2020-10-03 17:07 | CT Report ---
PROCEDURE: CHEST W INDICATIONS: PULMONARY NODULE CONTRAST: IV CONTRAST: Isovue 300 ml: 100 PO CONTRAST: Isovue 300 ml50 TECHNIQUE: After the administration of intravenous contrast, 5 mm thick sections acquired from the pulmonary api arlene to the posterior costophrenic angles. 7 mm thick coronal MIP reformats were acquired. For radia tion dose reduction, the following was used: automated exposure control, adjustment of mA and/or kV according to patient size. COMPARISON: None. FINDINGS: Image quality: Excellent. Lungs and pleura: Stable ill-defined 3 mm pulmonary nodule, right upper lobe, current image 124/3 and previous image 13 3/4. Stable 4 x 7 mm pleural-based right middle lobe pulmonary nodule, current image 197/3 and previous im age 203/4. No acute air space opacities. No pleural effusions or pneumothorax. Central and peripher al airways are patent and normal in caliber. Mediastinum: Heart size is normal. No pericardial effusion. Moderate coronary artery calcifications . No mediastinal or hilar adenopathy by size criteria. Thoracic aorta and central pulmonary arteries are normal in size. Esophagus is normal in caliber. Moderate hiatal hernia. Bones and chest wall: No suspicious bony lesions. No vertebral body compression fractures. No axil tawny or supraclavicular adenopathy by size criteria. Thyroid gland unremarkable as visualized. Abdomen: Visualized upper abdominal solid organs appear normal. Upper abdominal bowel loops are nor mal in caliber. IMPRESSION: 1. There are 2 right lung pulmonary nodules, which are unchanged in size. It may potentially represen t benign pulmonary nodules. However, 6 month follow-up CT is suggested. 2. Moderate hiatal hernia. 3. Coronary artery disease. Reviewed by: Edson Lopez MD on 09/28/2020 3:16 PM PDT Approved by: Edson Lopez MD on 09/28/2020 3:16 PM PDT Station ID: [id number]
== END 2020-09-28 11:30 | disposition home or self-care (01) ==
LOC: LAB 11:29
PROVIDERS: ATTEND Family Medicine
DX: R91.1 Solitary pulmonary nodule (principal); C64.2 Malignant neoplasm of left kidney, except renal pelvis; R91.8 Other nonspecific abnormal finding of lung field; K44.9 Diaphragmatic hernia without obstruction or gangrene; I25.10 Atherosclerotic heart disease of native coronary artery without angina pectoris
CPT/HCPCS: 36415; 82565

== ENCOUNTER 2020-10-04 08:30 | Outpatient (CLI) | payer OTHER ==
--- NOTE | 2020-10-04 15:09 | Nuclear Medicine Report ---
PROCEDURE: Bone Whole Body INDICATIONS: LT KIDNEY CA RADIOPHARMACEUTICAL: 26.9 mCi Tc-99m MDP IV. TECHNIQUE: Delayed whole-body scintigrams were obtained approximately 3-4 hours after intravenous injection of r adiotracer. Anterior and posterior views were acquired from vertex to feet. Additional left and rig ht oblique views of the calvarium were obtained. COMPARISON: 3 view right ankle 09/08/2020 and 07/22/2020. FINDINGS: Relative intense radiotracer uptake identified in the left maxillary sinus and left ethmoi d air cells which may be due to sinusitis, however infiltrating neoplasm cannot be excluded by Accertifya HEXIO bone scan. Foci of increased radiotracer uptake identified in the mid cervical spine and a t the right T9 and T10 costovertebral junctions which may present osteoarthritis. Focus of intense ra diotracer uptake identified in the lateral left sixth rib which could be posttraumatic or neoplastic. Increased radiotracer uptake identified in the right ankle compatible with known traumatic injury. N o abnormal soft tissue uptake. There is absence of tracer uptake identified in the left kidney compat ible with prior left nephrectomy. IMPRESSION: 1. Abnormal radiotracer uptake involving the left maxillary sinus and ethmoid air cells likely relate d to sinusitis, however CT scan of the sinuses recommended to exclude infiltrating neoplasm. 2. Increased radiotracer uptake involving the cervical spine and thoracic spine likely related to ost eoarthritis, however correlation with plain from radiographs is recommended to exclude metastatic dis ease. 3. Small focus of increased radiotracer activity in the left sixth rib which could be posttraumatic o r neoplastic. Recommend correlation with plain from radiographs. Reviewed by: Paige Sanders MD, PhD on 10/04/2020 3:08 PM PDT Approved by: Paige Sanders MD, PhD on 10/04/2020 3:08 PM PDT Station ID: [id number]
== END 2020-10-04 08:31 | disposition home or self-care (01) ==
LOC: DI 08:30
PROVIDERS: ATTEND Internal Medicine
DX: C64.2 Malignant neoplasm of left kidney, except renal pelvis (principal); R93.7 Abnormal findings on diagnostic imaging of other parts of musculoskeletal system
CPT/HCPCS: 78306

== ENCOUNTER 2021-05-02 08:09 | Outpatient (CLI) | payer OTHER ==
--- NOTE | 2021-05-03 14:49 | Mammography Report ---
BILATERAL DIGITAL SCREENING MAMMOGRAM 3D/2D: 05/02/2021 CLINICAL: Family history of breast cancer. Routine screening. Comparison is made to exams dated: 01/16/2019 mammogram, 01/10/2018 mammogram, and 07/06/2016 mammogram - [facility]. There are scattered fibroglandular elements in both breasts. No significant masses, calcifications, or other findings are seen in either breast. There has been no significant interval change. IMPRESSION: NEGATIVE There is no mammographic evidence of malignancy. A 1 year screening mammogram is recommended. This exam was interpreted at Station ID: [id number]. NOTE: For mammograms, a report in lay terms will be sent to the patient. Approximately 15% of breast malignancies will not be visualized mammographically. In the management of a palpable breast mass, a negative mammogram must not discourage biopsy of a clinically suspicious lesion. Electronically Signed By: Scott Hunt M.D. ar/penrad:05/02/2021 08:56:58 ACR BI-RADS Category 1: Negative 3341F PARENCHYMAL PATTERN: (A) - The breast(s) demonstrate(s) scattered fibroglandular densities. BI-RADS CATEGORY: (1) - 1 RECOMMENDATION: (ANNUAL) - Recommend routine annual screening mammography. [id number] 1 year screening LATERALITY: (B)
== END 2021-05-02 08:10 | disposition home or self-care (01) ==
LOC: DI.N 08:09
PROVIDERS: ATTEND Internal Medicine
DX: Z12.31 Encounter for screening mammogram for malignant neoplasm of breast (principal); Z80.3 Family history of malignant neoplasm of breast

== ENCOUNTER 2021-05-05 11:51 | Day surgery (SDC) | payer OTHER ==
[2021-05-05] MEDS ORDERED: LACTATED RINGERS 1,000 ML IV ONE ×2 (12:20→14:03)
--- NOTE | 2021-05-05 12:53 | ANESTHESIA ---
Pre-Anesthesia VS, & Labs - Diagnosis hx of polyps - Procedure colonoscopy Vital Signs: Temp Pulse Resp BP Pulse Ox 37 C 96 19 152/95 H 98 05/05/21 12:07 05/05/21 12:07 05/05/21 12:07 05/05/21 12:07 05/05/21 12:07 Height: 5 ft Weight (kg): 67.6 kg Body Mass Index: 29.0 BMI Classification: Overweight - NPO >8 hours - Is Patient ?: No Home Medications and Allergies Home Medications: Ambulatory Orders Calcium Carbonate [Calcium] 600 mg PO BID 05/02/21 Cranberry Fruit Extract [Cranberry] 500 mg PO BID 05/02/21 Cyanocobalamin (Vitamin B-12) [Vitamin B-12] 1,000 mcg PO DAILY 05/02/21 Lactobacillus Combination No.4 [Probiotic] 1 each PO DAILY 05/02/21 Meclizine HCl [Motion Sickness] 25 mg PO TID PRN 05/02/21 Melatonin 30 mg PO QPM 05/02/21 Omeprazole 20 mg PO DAILY 05/02/21 Papaya Enzyme 1 tab PO DAILY 05/02/21 Turmeric Root Extract [Turmeric] 500 mg PO DAILY 05/02/21 Felodipine [Felodipine ER] 2.5 mg PO DAILY 03/05/16 Tolterodine Tartrate [Detrol LA] 4 mg PO DAILY 03/05/16 diphenhydrAMINE [Benadryl] 25 mg PO BID 03/05/16 Calcium Carbonate [Calcium] 600 mg PO BID 05/02/21 Cranberry Fruit Extract [Cranberry] 500 mg PO BID 05/02/21 Cyanocobalamin (Vitamin B-12) [Vitamin B-12] 1,000 mcg PO DAILY 05/02/21 Lactobacillus Combination No.4 [Probiotic] 1 each PO DAILY 05/02/21 Meclizine HCl [Motion Sickness] 25 mg PO TID PRN 05/02/21 Melatonin 30 mg PO QPM 05/02/21 Omeprazole 20 mg PO DAILY 05/02/21 Papaya Enzyme 1 tab PO DAILY 05/02/21 Turmeric Root Extract [Turmeric] 500 mg PO DAILY 05/02/21 Allergies/Adverse Reactions: Allergies Allergy/AdvReac Type Severity Reaction Status Date / Time No Known Drug Allergies Allergy Verified 05/05/21 12:19 Anes History & Medical History - Anesthetic History Anesthesia Complications: reports: No previous complications Family history of Anesthesia Complications: Denies Family history of Malignant Hyperthermia: Denies - Medical History Cardiovascular: reports: Hypertension Pulmonary: reports: Sleep apnea Gastrointestinal: reports: GERD, Cholelithiasis Urinary: reports: Incontinence, Other Neuro: reports: Other Musculoskeletal: reports: None Endocrine/Autoimmune: reports: None Skin: reports: None Smoking Status: Former smoker - Surgical History General: reports: Cholecystectomy, Colonoscopy, EGD, Other Urologic: reports: Nephrectomy Exam General: Alert, Oriented x3, Cooperative Dental: WNL Mouth Openin Fingerbreadth Neck Mobility: Normal Mallampati classification: II Thyromental Distance: 4-6 cm Respiratory: Lungs clear Cardiovascular: Regular rate Plan Anesthesia Type: Total IV Consent for Procedure(s) Verified and Reviewed: Yes Code Status: Attempt Resuscitation ASA classification: 2-Mild systemic disease Is this case an emergency?: No
[2021-05-05] MEDS ORDERED: PROPOFOL 200 MG/20 ML VIAL IVP ONE ×2 (13:15→13:16)
[2021-05-05] MEDS ORDERED: ONDANSETRON 4 MG/2 ML VIAL ONE (13:16)
[2021-05-05] MEDS ORDERED: METOCLOPRAMIDE 10 MG/2 ML VIAL ONE (14:17)
[2021-05-05 14:40] VITALS: BP 138/87
--- NOTE | 2021-05-05 15:16 | ANESTHESIA POST OP EVALUATION ---
Anesthesia Post Eval - Post Anesthesia Eval Vitals: Last Vital Signs Temp 36.3 C L 05/05/21 14:30 Pulse 78 05/05/21 14:30 Resp 17 05/05/21 14:30 BP 138/87 H 05/05/21 14:30 Pulse Ox 100 05/05/21 14:30 CV Function Including HR & BP: Stable Pain Control: Satisfactory Nausea & Vomiting: Negative Mental Status: Baseline Respiratory Status: Airway Patent Hydration Status: Satisfactory Anesthesia Complications: None
== END 2021-05-05 11:52 | disposition home or self-care (01) ==
LOC: SDS 11:51
PROVIDERS: ATTEND Surgery
PROC: 0DBL8ZX Excision of Transverse Colon, Via Natural or Artificial Opening Endoscopic, Diagnostic (ICD-10-PCS; principal; 2021-05-05 13:15)
DX: Z12.11 Encounter for screening for malignant neoplasm of colon (principal); D12.3 Benign neoplasm of transverse colon; G47.33 Obstructive sleep apnea (adult) (pediatric); Z87.891 Personal history of nicotine dependence
CPT/HCPCS: 45380; J2765; J7120

== ENCOUNTER 2021-07-14 06:36 | Outpatient (CLI) | payer OTHER ==
--- NOTE | 2021-07-14 09:40 | Ultrasound Report ---
PROCEDURE: Head or Neck Soft Tissue INDICATIONS: LYMPHADENOPATHY TECHNIQUE: Real time scanning was performed of the neck region of interest, with image documentation . COMPARISON: None. FINDINGS: There are multiple normal appearing cervical lymph nodes. All of these lymph nodes are none nlarged, measuring less than 8 mm in short axis diameter. There is no abnormal thickening of the jocelyne ex. The cortices remain hypoechoic. There is preservation of the fatty jeremy in the lymph nodes bilate rally. IMPRESSION: No sonographic evidence of lymphadenopathy. Numerous normal-appearing and nonenlarged lymph nodes are seen bilaterally. If there is continued clinical concern for neck mass or cervical lymphadenopathy, a CT of the neck with IV contrast would be recommended. Reviewed by: Gabino Salazar MD on 07/14/2021 9:38 AM PST Approved by: Gabino Salazar MD on 07/14/2021 9:38 AM PST Station ID: [id number]
== END 2021-07-14 06:37 | disposition home or self-care (01) ==
LOC: DI 06:36
PROVIDERS: ATTEND Internal Medicine
DX: R59.0 Localized enlarged lymph nodes (principal)

== ENCOUNTER 2021-10-04 08:00 | Outpatient (CLI) | payer OTHER ==
[2021-10-04 15:12] LABS: BASOPHILS % (AUTO) 0.5 %; EOSINOPHILS # (AUTO) 0.1 10^3/uL (0.0-0.7); EOSINOPHILS % (AUTO) 1.9 %; HCT - HEMATOCRIT 38.1 % (37.0-47.0); HGB - HEMOGLOBIN 12.6 g/dL (12.0-16.0); LYMPHOCYTES % (AUTO) 30.7 %; MEAN CORPUSCULAR HEMOGLOBIN 26.8 pg (27.0-31.0); MEAN CORPUSCULAR HGB CONC 33.1 g/dL (32.0-36.0); MEAN CORPUSCULAR VOLUME 80.9 fL (81.0-99.0); MEAN PLATELET VOLUME 9.5 fL (7.9-10.8); MONOCYTES # (AUTO) 0.9 10^3/uL (0.0-1.0); MONOCYTES % (AUTO) 13.5 %; NEUTROPHILS # (AUTO) 3.4 10^3/uL (1.5-6.6); NEUTROPHILS % (AUTO) 53.2 %; PLT - PLATELET COUNT 268 10^3/uL (130-450); RED BLOOD COUNT 4.71 10^6/uL (4.20-5.40); RED CELL DISTRIBUTION WIDTH 14.5 % (12.0-15.0); WHITE BLOOD COUNT 6.4 x10^3/uL (4.8-10.8)
[2021-10-04 15:27] LABS: ALBUMIN 3.6 g/dL (3.2-5.5); ALBUMIN/GLOBULIN RATIO 1.1 (1.0-2.2); BILIRUBIN,TOTAL 0.4 mg/dL (0.2-1.0); CALCIUM 8.5 mg/dL (8.5-10.3); CREATININE 0.8 mg/dL (0.4-1.0); POTASSIUM 3.5 mmol/L (3.5-5.0); TOTAL PROTEIN 6.8 g/dL (6.7-8.2)
== END 2021-10-06 13:02 | disposition home or self-care (01) ==
LOC: LAB 08:00
PROVIDERS: ATTEND Internal Medicine
DX: R91.1 Solitary pulmonary nodule (principal); D75.1 Secondary polycythemia
CPT/HCPCS: 36415; 80053; 82668; 82728; 83540; 84466; 85025

== ENCOUNTER 2021-10-19 07:56 | Day surgery (SDC) | payer OTHER ==
[~2021-10-19 07:56] MED LIST: CEFAZOLIN SODIUM IN 0.9 % NACL 2 GM/50 ML BAG IV ONE
[2021-10-19] MEDS ORDERED: LACTATED RINGERS 1,000 ML IV ONE ×2 (08:16→10:37)
--- NOTE | 2021-10-19 08:48 | ANESTHESIA ---
Pre-Anesthesia VS, & Labs - Diagnosis abdominal incision hernia - Procedure repair of abdominal incisional hernia with mesh Vital Signs: Temp Pulse Resp BP Pulse Ox 36.6 C 90 24 157/89 H 100 10/19/21 08:10 10/19/21 08:10 10/19/21 08:10 10/19/21 08:10 10/19/21 08:10 Height: 5 ft Weight (kg): 69 kg Body Mass Index: 29.7 BMI Classification: Overweight - NPO >8 hours - Is Patient ?: No Home Medications and Allergies Felodipine [Felodipine ER] 2.5 mg PO DAILY 03/05/16 Tolterodine Tartrate [Detrol LA] 4 mg PO DAILY 03/05/16 diphenhydrAMINE [Benadryl] 25 mg PO BID 03/05/16 Calcium Carbonate [Calcium] 600 mg PO BID 05/02/21 Cranberry Fruit Extract [Cranberry] 500 mg PO BID 05/02/21 Cyanocobalamin (Vitamin B-12) [Vitamin B-12] 1,000 mcg PO DAILY 05/02/21 Lactobacillus Combination No.4 [Probiotic] 1 each PO DAILY 05/02/21 Meclizine HCl [Motion Sickness] 25 mg PO TID PRN 05/02/21 Melatonin 30 mg PO QPM 05/02/21 Omeprazole 20 mg PO DAILY 05/02/21 Papaya Enzyme 1 tab PO DAILY 05/02/21 Turmeric Root Extract [Turmeric] 500 mg PO DAILY 05/02/21 Allergies/Adverse Reactions: Allergies Allergy/AdvReac Type Severity Reaction Status Date / Time No Known Drug Allergies Allergy Verified 05/05/21 12:19 Anes History & Medical History - Anesthetic History Anesthesia Complications: reports: No previous complications, Post-Operative Nausea/Vomiting - Medical History Cardiovascular: reports: Hypertension Pulmonary: reports: Sleep apnea (does not use cpap) Gastrointestinal: reports: GERD (controlled with med) Urinary: reports: Incontinence, Other (s/p nephrecomy for cancer) Neuro: reports: None Musculoskeletal: reports: None Endocrine/Autoimmune: reports: None Blood Disorders: reports: None Skin: reports: None Smoking Status: Former smoker (quit 20 years ago) Psychosocial: reports: No issues indicated History of Cancer?: Yes (kidney. no chemo or radiation) - Surgical History General: reports: Cholecystectomy, Colonoscopy, EGD, Other Urologic: reports: Nephrectomy Exam General: Alert, Oriented x3, Cooperative, No acute distress Dental: WNL Mouth Openin Fingerbreadth Neck Mobility: Normal Mallampati classification: II Thyromental Distance: 4-6 cm Mental/Cognitive Status: Alert/Oriented X3, Normal for patient Plan Anesthesia Type: General Consent for Procedure(s) Verified and Reviewed: Yes Code Status: Attempt Resuscitation ASA classification: 3-Severe systemic disease Is this case an emergency?: No
[2021-10-19] MEDS ORDERED: ATROPINE ABBOJECT 1 MG/10 ML SYRINGE IVP PRN (08:52)
[2021-10-19] MEDS ORDERED: ONDANSETRON 4 MG/2 ML VIAL IVP PRN ×2 (08:52→10:40)
[2021-10-19] MEDS ORDERED: MORPHINE 2 MG/ML CARPUJECT IVP PRN (08:52)
[2021-10-19] MEDS ORDERED: HYDROmorphone 0.5 MG/0.5 ML SYRINGE IVP PRN ×2 (08:52→10:40)
[2021-10-19] MEDS ORDERED: NALOXONE 0.4 MG/ML VIAL IVP PRN (08:52)
[2021-10-19] MEDS ORDERED: fentaNYL 100 MCG/2 ML VIAL IVP PRN (08:52)
[2021-10-19] MEDS ORDERED: LACTATED RINGERS 1,000 ML IV SCH (09:00)
[2021-10-19] MEDS ORDERED: SCOPOLAMINE PATCH TOP SCH (09:00)
[2021-10-19] MEDS ORDERED: BUPIVACAINE 0.5% PF 30 ML VIAL INFIL ONE (09:02)
[2021-10-19] MEDS ORDERED: SCOPOLAMINE PATCH TOP ONE (09:06)
--- NOTE | 2021-10-19 09:06 | HISTORY & PHYSICAL EXAMINATION ---
Chief Complaint - Chief Complaint Chief Complaint: painful hernia bulge History of Present Illness - History Obtained From Records Reviewed: yes History obtained from: pt Exam Limitations: none - History of Present Illness HPI Comment/Other: history renal cancer and nephrectomy. symptomatic and enlarging hernia at and above her umbilicus History - Past Medical History Cardiovascular: reports: Hypertension Respiratory: reports: Sleep apnea (does not use cpap) Neuro: reports: None Endocrine/Autoimmune: reports: None GI: reports: GERD (controlled with med) [employer]: reports: None : reports: Incontinence, Other (s/p nephrecomy for cancer) HEENT: reports: Chronic vision loss Psych: reports: None Musculoskeletal: reports: None Derm: reports: None MRSA Hx?: No - Past Surgical History General: reports: Cholecystectomy, Colonoscopy, EGD, Other - POLST Patient has POLST: No Meds/Allgy - Home Medications Home Medications: Ambulatory Orders Medication Instructions Recorded Confirmed Felodipine [Felodipine ER] 2.5 mg PO DAILY 03/05/16 10/19/21 Tolterodine Tartrate [Detrol LA] 4 mg PO DAILY 03/05/16 10/19/21 diphenhydrAMINE [Benadryl] 25 mg PO BID 03/05/16 10/19/21 Calcium Carbonate [Calcium] 600 mg PO BID 05/02/21 10/12/21 Cranberry Fruit Extract [Cranberry] 500 mg PO BID 05/02/21 10/12/21 Cyanocobalamin (Vitamin B-12) 1,000 mcg PO DAILY 05/02/21 10/12/21 [Vitamin B-12] Lactobacillus Combination No.4 1 each PO DAILY 05/02/21 10/12/21 [Probiotic] Meclizine HCl [Motion Sickness] 25 mg PO TID PRN 05/02/21 10/12/21 Melatonin 30 mg PO QPM 05/02/21 10/12/21 Omeprazole 20 mg PO DAILY 05/02/21 10/12/21 Papaya Enzyme 1 tab PO DAILY 05/02/21 10/12/21 Turmeric Root Extract [Turmeric] 500 mg PO DAILY 05/02/21 10/12/21 - Allergies Allergies/Adverse Reactions: Allergies Allergy/AdvReac Type Severity Reaction Status Date / Time No Known Drug Allergies Allergy Verified 05/05/21 12:19 Review of Systems - Other Findings Other Findings: 10 pt ros as above otherwise unremarkable Exam - Vital Signs Reviewed Vital Signs: Yes Vital Signs: Vital Signs x48h Temp Pulse Resp BP Pulse Ox 10/19/21 08:10 36.6 C 90 24 157/89 H 100 - Physical Exam General Appearance: positive: No acute distress, Alert Eyes Bilateral: positive: PERRL, EOMI ENT: positive: No signs of dehydration Neck: positive: No JVD, Trachea midline Respiratory: positive: No respiratory distress, Breath sounds nml Cardiovascular: positive: Regular rate & rhythm Abdomen: positive: Other (6 cm periumbilical incisional hernia) Neurologic/Psychiatric: positive: Oriented x3 Conclusion/Plan - Problem List (1) Incisional hernia Conclusion/Plan: plan open repair with mesh parq held and consent obtained
[2021-10-19] MEDS ORDERED: LIDOCAINE-MPF 2% 5 ML VIAL ONE (09:07)
[2021-10-19] MEDS ORDERED: MIDAZOLAM 2 MG/2 ML VIAL ONE (09:07)
[2021-10-19] MEDS ORDERED: ROCURONIUM 50 MG/5 ML VIAL ONE (09:07)
[2021-10-19] MEDS ORDERED: PROPOFOL 200 MG/20 ML VIAL IVP ONE (09:07)
[2021-10-19] MEDS ORDERED: fentaNYL 100 MCG/2 ML VIAL ONE (09:07)
[2021-10-19] MEDS ORDERED: BUPIVACAINE 0.5% PF 30 ML VIAL ONE (09:13)
[2021-10-19] MEDS ORDERED: DEXAMETHASONE 4 MG/ML VIAL ONE (09:58)
[2021-10-19] MEDS ORDERED: SUGAMMADEX 200 MG/2 ML VIAL IVP ONE (10:24)
[2021-10-19] MEDS ORDERED: HYDROcod/ACETAM 5/325 MG TABLET PO PRN (10:40)
--- NOTE | 2021-10-19 11:10 | OPERATIVE REPORT ---
Operative Report - General Procedure Date: 10/19/21 Planned Procedure: open incisional hernia repair with mesh Pre-Op Diagnosis: incisional hernia Procedure Performed: open incisional hernia repair with mesh Post Op Diagnosis: incisional hernia - Procedure Note Primary Surgeon: windy holbrook Anesthesia Technique: General ET tube, Local Pathology: none Estimated Blood Loss (mL): 1 Drain/Tube Type: Other (none) Indications: painful hernia bulge Findings: 3 x 4 cm defect Complications: none - Other Other Information/Narrative: The patient was properly identified brought to the operating room and placed in supine position. General endotracheal anesthesia was induced. Sequential compression devices were placed. She was prepped and draped in a sterile f ashion and given preoperative antibiotics. She had a symptomatic periumbilical hernia. She had no symptoms cephalad. There was no palpable hernia cephalad. An elliptical 5 cm incision was made around the stretched umbilical skin. The hernia sac was mobilized away from surrounding subcutaneous tissue. The hernia sac measured nearly 6 cm of. Fascial defect measured approximately 3 cm cephalad by 5 cm lateral the preperitoneal space was carefully developed. Umbilical skin was sharply excised and removed. Hole in the peritoneum was closed with a running 3-0 Vicryl suture. Approximately 2-3/4 wide by 3 inch tall polypropylene mesh was placed preperitoneal. It was secured with multiple interrupted 0 Tycron sutures. Fascia was closed transversely over the mesh with additional interrupted 0 Tycron sutures. Mesh lay in good position without tension. Subcutaneous tissue was closed in layers with interrupted 2-0 Vicryl suture. Buried interrupted subdermal 3-0 Vicryl sutures were then placed. Skin was closed with a running 4-0 Monocryl subcuticular suture. Steri-Strips and dressing were applied. She tolerated procedure well was awakened and brought to recovery in good condition.
--- NOTE | 2021-10-19 11:58 | ANESTHESIA POST OP EVALUATION ---
Anesthesia Post Eval - Post Anesthesia Eval Vitals: Last Vital Signs Temp 36.7 C 10/19/21 11:48 Pulse 79 10/19/21 11:48 Resp 13 10/19/21 11:48 BP 154/80 H 10/19/21 11:48 Pulse Ox 95 10/19/21 11:48 CV Function Including HR & BP: Stable Pain Control: Satisfactory Nausea & Vomiting: Negative Mental Status: Baseline Respiratory Status: Airway Patent Hydration Status: Satisfactory Anesthesia Complications: None
[2021-10-19 14:30] VITALS: BP 154/77
== END 2021-10-19 14:50 | disposition home or self-care (01) ==
LOC: SDS 07:56 → MS3 11:00 → SDS 14:50
PROVIDERS: ATTEND Surgery
DX: K43.2 Incisional hernia without obstruction or gangrene (principal); G47.30 Sleep apnea, unspecified; Z90.5 Acquired absence of kidney; Z87.891 Personal history of nicotine dependence; Z85.528 Personal history of other malignant neoplasm of kidney
CPT/HCPCS: 49560; 49568; C1781; J0690; J3490; J7120

== ENCOUNTER 2022-04-23 14:31 | Outpatient (CLI) | payer OTHER ==
--- NOTE | 2022-04-24 12:15 | Mammography Report ---
BILATERAL DIGITAL SCREENING MAMMOGRAM 3D/2D: 04/23/2022 CLINICAL: Family history of breast cancer. Routine screening. Comparison is made to exams dated: 05/02/2021 mammogram, 01/16/2019 mammogram, 01/10/2018 mammogram, mammogram, 06/18/2014 mammogram, and 12/24/2011 mammogram - [facility]. There are scattered areas of fibroglandular density in both breasts (category b / 25%-50% glandular t issue). There is a new 0.5 cm round equal density focal asymmetry in the right breast at 7 o'clock posterior depth. No other significant masses, calcifications, or other findings are seen in either breast. IMPRESSION: INCOMPLETE: NEEDS ADDITIONAL IMAGING EVALUATION The new 0.5 cm round equal density focal asymmetry in the right breast is indeterminate. Additional views with possible ultrasound are recommended. Based on the Tyrer Cuzick model (a risk assessment model) the patients lifetime risk is 11.3% and he r 10 year risk is 5.7%. According to the ACR, ACS, and NCCN guidelines, an annual breast MRI exam keyshawn ng with mammogram is recommended if the patients lifetime risk is 20% or greater. This exam was interpreted at Station ID: [id number]. NOTE: For mammograms, a report in lay terms will be sent to the patient. Approximately 15% of breast malignancies will not be visualized mammographically. In the management of a palpable breast mass, a negative mammogram must not discourage biopsy of a clinically suspicious lesion. Electronically Signed By: Tolu Howard M.D. aty/:04/24/2022 07:37:36 ACR BI-RADS Category 0: Incomplete 3340F PARENCHYMAL PATTERN: (A) - The breast(s) demonstrate(s) scattered fibroglandular densities. BI-RADS CATEGORY: (0) - 0 Mammo and [place] [id number] Immediate follow-up LATERALITY: (R)
== END 2022-04-23 14:32 | disposition home or self-care (01) ==
LOC: DI.N 14:31
PROVIDERS: ATTEND Nurse Practitioner Family
DX: Z12.31 Encounter for screening mammogram for malignant neoplasm of breast (principal); R92.8 Other abnormal and inconclusive findings on diagnostic imaging of breast; Z80.3 Family history of malignant neoplasm of breast

== ENCOUNTER 2022-05-11 10:48 | Outpatient (CLI) | payer OTHER ==
--- NOTE | 2022-05-14 12:56 | Mammography Report ---
UNILATERAL RIGHT DIGITAL DIAGNOSTIC MAMMOGRAM 3D/2D: 05/11/2022 CLINICAL: Patient returns today to evaluate a focal asymmetry in the right breast. Comparison is made to exams dated: 04/23/2022 mammogram, 05/02/2021 mammogram, 01/16/2019 mammogram, 01/10/2018 mammogram, and 07/06/2016 mammogram - [facility]. There are scattered areas of fibroglandular density in the right breast (category b / 25%-50% glandul ar tissue). There is a new 5 mm round, equal density focal asymmetry in the right breast at 8 o'clock middle dept h with a smooth margin. This is seen in additional views. No other significant masses or calcifications are seen in the breast. IMPRESSION: INCOMPLETE: NEEDS ADDITIONAL IMAGING EVALUATION The focal asymmetry in the right breast remains indeterminate. An ultrasound is recommended. This w as performed immediately following this exam. Based on the Tyrer Cuzick model (a risk assessment model) the patients lifetime risk is 11.3% and he r 10 year risk is 5.7%. According to the ACR, ACS, and NCCN guidelines, an annual breast MRI exam keyshawn ng with mammogram is recommended if the patients lifetime risk is 20% or greater. This exam was interpreted at Station ID: [id number]. NOTE: For mammograms, a report in lay terms will be sent to the patient. Approximately 15% of breast malignancies will not be visualized mammographically. In the management of a palpable breast mass, a negative mammogram must not discourage biopsy of a clinically suspicious lesion. Electronically Signed By: Lucero reed/:05/11/2022 11:21:17 ACR BI-RADS Category 0: Incomplete 3340F PARENCHYMAL PATTERN: (A) - The breast(s) demonstrate(s) scattered fibroglandular densities. BI-RADS CATEGORY: (0) - 0 Ultrasound [id number] Immediate follow-up LATERALITY: (B)
--- NOTE | 2022-05-14 12:56 | Ultrasound Report ---
LIMITED ULTRASOUND OF RIGHT BREAST AND AXILLA: 05/11/2022 CLINICAL: Patient returns today to evaluate a focal asymmetry in the right breast. Patient returns to day to evaluate a focal asymmetry in the right breast. Comparison is made to exams dated: 04/23/2022 mammogram, 05/02/2021 mammogram, 01/16/2019 mammogram, 01/10/2018 mammogram, 07/06/2016 mammogram, and 06/18/2014 mammogram - [facility]. Color flow and real-time ultrasound of the right breast 8-9 o'clock, and axilla regions were performe d. Mondragon scale images of the real-time examination were reviewed. There is a 0.5 cm x 0.5 cm x 0.5 cm round mass with a circumscribed margin in the right breast at 8 o 'clock posterior depth 10 cm from the nipple. This round mass is hypoechoic with a hyperechoic halo, and no posterior acoustic shadowing or enhancement. This correlates with mammography findings. Col or flow imaging demonstrates that there is increased internal vascularity. No significant abnormalities were seen sonographically in the right axilla. IMPRESSION: SUSPICIOUS OF MALIGNANCY The 0.5 cm x 0.5 cm x 0.5 cm round mass in the right breast is suspicious of malignancy. An ultrasou nd guided biopsy is recommended. No axillary adenopathy. Findings and recommendations were discussed with the patient by Dr. Scott Hunt in person at time of exam. This exam was interpreted at Station ID: [id number]. Electronically Signed By: Lucero reed/:05/11/2022 12:13:02 Ultrasound BI-RADS: 4 Suspicious for malignancy BI-RADS CATEGORY: (4) - 4 Biopsy [id number] Immediate follow-up LATERALITY: (R)
== END 2022-05-11 10:49 | disposition home or self-care (01) ==
LOC: DI 10:48
PROVIDERS: ATTEND Nurse Practitioner Family
DX: N63.13 Unspecified lump in the right breast, lower outer quadrant (principal)

== ENCOUNTER 2022-05-21 12:29 | Outpatient (CLI) | payer OTHER ==
[~2022-05-21 12:29] MED LIST changes: -CEFAZOLIN SODIUM IN 0.9 % NACL 2 GM/50 ML BAG IV ONE; +LIDOCAINE 1%-EPI 1:100000 20 ML MDV ONE; +LIDOCAINE-MPF 1% 5 ML VIAL ONE
[2022-05-21] MEDS ORDERED: LIDOCAINE 1%-EPI 1:100000 20 ML MDV ONE (12:59)
[2022-05-21] MEDS ORDERED: LIDOCAINE-MPF 1% 5 ML VIAL TD ONE (13:45)
[2022-05-21] MEDS ORDERED: LIDOCAINE 1%-EPI 1:100000 20 ML MDV SUBQ ONE (13:47)
--- NOTE | 2022-05-22 12:56 | Mammography Report ---
UNILATERAL RIGHT DIGITAL DIAGNOSTIC MAMMOGRAM POST-PROCEDURE IMAGING FOR MARKER PLACEMENT: 05/21/2022 CLINICAL: Post right breast ultrasound biopsy clip placement imaging. Comparison is made to exams dated: 05/11/2022 mammogram, 04/23/2022 mammogram, 05/02/2021 mammogram, and 01/16/2019 mammogram - [facility]. There are scattered areas of fibroglandular density in the right breast (category b / 25%-50% glandul ar tissue). There is a marker clip in the appropriate position in the right breast at 8 o'clock posterior depth. This marker clip placement is at the biopsy site. This correlates with ultrasound findings and the biopsy. IMPRESSION: POST PROCEDURE MAMMOGRAM FOR MARKER PLACEMENT There was a successful marker clip placement in the right breast posterior depth. Based on the Tyrer Cuzick model (a risk assessment model) the patients lifetime risk is 11.3% and he r 10 year risk is 5.7%. According to the ACR, ACS, and NCCN guidelines, an annual breast MRI exam keyshawn ng with mammogram is recommended if the patients lifetime risk is 20% or greater. This exam was interpreted at Station ID: [id number]. NOTE: For mammograms, a report in lay terms will be sent to the patient. Approximately 15% of breast malignancies will not be visualized mammographically. In the management of a palpable breast mass, a negative mammogram must not discourage biopsy of a clinically suspicious lesion. Electronically Signed By: Tolu Howard M.D. aty/naomirad:05/21/2022 17:36:42 ACR BI-RADS Category Post-procedure mammogram for marker placement PARENCHYMAL PATTERN: (A) - The breast(s) demonstrate(s) scattered fibroglandular densities. BI-RADS CATEGORY: () - Unspecified - other recall n/a LATERALITY: (B)
--- NOTE | 2022-05-29 10:16 | Ultrasound Report ---
ULTRASOUND GUIDED BIOPSY RIGHT BREAST WITH MARKING DEVICE INSERTED AND POST MAMMOGRAPHIC IMAGIN CLINICAL: Right breast mass. PATIENT CONSENT: Risks (minor bleeding, infection, vasovagal reaction and repeat procedure), benefits and alternatives were explained to the patient and written informed consent was obtained. Correlation is made to exams dated: 05/11/2022 ultrasound, 05/11/2022 mammogram, 04/23/2022 mammogram, 05/02/2021 mammogram, 01/16/2019 mammogram, and 01/10/2018 mammogram - [facility]. An ultrasound guided biopsy using real-time ultrasound was performed for the 0.5 cm x 0.5 cm x 0.5 cm oval mass located in the right breast at 8 o'clock posterior depth 10 cm from the nipple. This was described on the previous ultrasound report. The skin was prepped in the usual manner. Local anesth etic was administered to the access site. The abnormality was approached from the lateral aspect. A 16 gauge biopsy needle was placed adjacent to the abnormality under ultrasound guidance. Once the n eedle was documented to be in the correct location, four specimens were obtained using the Awareness Card opsy device. A clip was inserted into the biopsy cavity. A sterile dressing was applied to the acce ss site. Post procedure mammographic imaging demonstrates the location device at the targeted area. The specimens were sent to the laboratory for pathological analysis. IMPRESSION: ULTRASOUND GUIDED BIOPSY MALIGNANT Ultrasound guided biopsy of the 0.5 cm x 0.5 cm x 0.5 cm mass in the right breast at 8 o'clock rehabilitation aide/scheduler ior depth 10 cm from the nipple was successful. Pathology indicates malignant metastastic renal cell carcinoma. Pathology results are concordant with imaging findings. A chemo-oncology consultation is recommended. This exam was interpreted at Station ID: [id number]. Tolu serrano,/:05/24/2022 15:50:42 BI-RADS CATEGORY: () - Unspecified - other recall n/a LATERALITY: (B)
== END 2022-05-21 12:30 | disposition home or self-care (01) ==
LOC: DI 12:29
PROVIDERS: ATTEND Nurse Practitioner Family
DX: C79.81 Secondary malignant neoplasm of breast (principal); C64.9 Malignant neoplasm of unspecified kidney, except renal pelvis
CPT/HCPCS: 19083

== ENCOUNTER 2022-06-06 07:15 | Outpatient (CLI) | payer OTHER ==
[2022-06-06] MEDS ORDERED: LACTATED RINGERS 1,000 ML IV ONE ×2 (07:36→09:37)
[2022-06-06] MEDS ORDERED: LIDOCAINE-MPF 1% 5 ML VIAL ONE (07:51)
[2022-06-06 08:01] LABS: INR 0.9 (0.8-1.2); PT - PROTHROMBIN TIME 10.4 secs (9.9-12.6)
[2022-06-06 08:08] LABS: PARTIAL THROMBOPLASTIN TIME 32.6 secs (24.9-33.3)
[2022-06-06] MEDS ORDERED: MIDAZOLAM 2 MG/2 ML VIAL ONE ×2 (08:18→08:27)
[2022-06-06] MEDS ORDERED: fentaNYL 100 MCG/2 ML VIAL ONE (08:18)
[2022-06-06] MEDS ORDERED: ONDANSETRON 4 MG/2 ML VIAL ONE (08:25)
--- NOTE | 2022-06-06 09:53 | XRAY Report ---
PROCEDURE: Chest 1 View X-Ray INDICATIONS: POST CT LUNG BIOPSY TECHNIQUE: One view of the chest was acquired. COMPARISON: None. FINDINGS: Surgical changes and devices: None. Lungs and pleura: There is a small to moderate-sized right pneumothorax. No airspace consolidation o r pleural effusions. Mediastinum: Mediastinal contours appear normal. Heart size is normal. Bones and chest wall: No suspicious bony lesions. Overlying soft tissues appear unremarkable. IMPRESSION: Small to moderate right pneumothorax after CT-guided lung biopsy. Reviewed by: Sommer Page MD on 06/06/2022 9:51 AM [facility] Approved by: Sommer Page MD on 06/06/2022 9:51 AM [facility] Station ID: [id number]
[2022-06-06] MEDS ORDERED: LIDOCAINE-MPF 1% 5 ML VIAL TD ONE (10:23)
--- NOTE | 2022-06-06 10:58 | XRAY Report ---
PROCEDURE: Chest x-ray INDICATIONS: POST CT LUNG BIOPSY TECHNIQUE: Single view of the chest was acquired COMPARISON: Single view the chest dated 06/06/2022 at 8:59 AM FINDINGS: Right pneumothorax is redemonstrated and is likely slightly increased in size from the prior study. N o other acute pulmonary findings. IMPRESSION: Findings suspicious for slight increase in the size of the right pneumothorax when compared with the prior study. Reviewed by: Sommer Page MD on 06/06/2022 10:56 AM [facility] Approved by: Sommer Page MD on 06/06/2022 10:56 AM [facility] Station ID: [id number]
[2022-06-06 11:06] VITALS: BP 129/73
--- NOTE | 2022-06-06 14:08 | CT Report ---
PROCEDURE: RT LUNG BX PERC Sedation analgesia for 30 minutes. INDICATIONS: RUL LUNG MASS TECHNIQUE: The indications, alternatives, benefits, risks, and possible complications of the procedure were comm unicated to the patient. Informed written consent from the patient was obtained and placed in the art. Continuous EKG and hemodynamic monitoring was started by trained personnel. For radiation dose reduction, the following was used: automated exposure control, adjustment of mA and/or kV according to patient size. The patient was brought to the CT suite and orientation and mobility specialist spiral CT imaging was performed with localization g rid. The appropriate site for percutaneous access to the biopsy target was marked, was prepped and d raped sterilely, and was infused with local anaesthesia. Under CT guidance, a core biopsy trocar and needle set was advanced to the biopsy target, and specimen(s) were obtained. The trocar and needle were then removed, and the patient was sent for post-procedure monitoring. COMPARISON: CT of the chest dated 05/15/2022 FINDINGS: Biopsy site: Right lung Needle: 20 gauge biopsy needle with introducer trocar. Number of passes: 4 Medications: 1% lidocaine for local anaesthesia. IV Fentanyl and Versed for conscious sedation for 30 minutes (see nursing record). Complications: Small to moderate pneumothorax. IMPRESSION: Successful CT-guided biopsy of a right lung nodule. Reviewed by: Sommer Page MD on 06/06/2022 2:06 PM PST Approved by: Sommer Page MD on 06/06/2022 2:06 PM PST Station ID: [id number]
== END 2022-06-06 07:16 | disposition home or self-care (01) ==
LOC: DI 07:15
PROVIDERS: ATTEND Internal Medicine
DX: R91.1 Solitary pulmonary nodule (principal); J95.811 Postprocedural pneumothorax; C64.2 Malignant neoplasm of left kidney, except renal pelvis
CPT/HCPCS: 32408; 36415; 85610; 85730

== ENCOUNTER 2022-06-12 09:37 | Outpatient (CLI) | payer OTHER ==
--- NOTE | 2022-06-12 15:55 | XRAY Report ---
PROCEDURE: Chest 2 View X-Ray INDICATIONS: PNEUMOTHORAX TECHNIQUE: 2 views of the chest were acquired. COMPARISON: 06/08/2022, 06/07/2022, 06/06/2022. FINDINGS: Surgical changes and devices: There is interval removal of right-sided chest tube. Surgical clips are seen in right upper quadrant abdomen.. Lungs and pleura: No pleural effusions or pneumothorax. Lungs are clear. Mediastinum: Mediastinal contours are normal. Heart size is enlarged. Bones and chest wall: No suspicious bony abnormalities. Soft tissues appear unremarkable. IMPRESSION: Interval removal of right-sided chest tube. No gross pneumothorax is seen on the current study. No fo gurmeet infiltrate, or pleural effusion. Reviewed by: Yunior Voss MD on 06/12/2022 3:54 PM PST Approved by: Yunior Voss MD on 06/12/2022 3:54 PM PST Station ID: [id number]
== END 2022-06-12 09:38 | disposition home or self-care (01) ==
LOC: DI 09:37
PROVIDERS: ATTEND Surgery
DX: J93.9 Pneumothorax, unspecified (principal)

== ENCOUNTER 2022-09-19 11:56 | Outpatient (CLI) | payer OTHER ==
--- NOTE | 2022-09-19 17:46 | XRAY Report ---
PROCEDURE: Chest 2 View X-Ray INDICATIONS: CRACKLING IN LUNGS TECHNIQUE: 2 views of the chest were acquired. COMPARISON: None. FINDINGS: Surgical changes and devices: None. Lungs and pleura: Mild hyperinflation and chronic interstitial changes Mediastinum: Mediastinal contours appear normal. Heart size is normal. Bones and chest wall: No suspicious bony lesions. Overlying soft tissues appear unremarkable. IMPRESSION: No acute cardiopulmonary findings Reviewed by: Darius Diaz MD on 09/19/2022 4:45 PM [facility] Approved by: Darius Diaz MD on 09/19/2022 4:45 PM [facility] Station ID: [id number]
== END 2022-09-19 11:57 | disposition home or self-care (01) ==
LOC: DI 11:56
PROVIDERS: ATTEND Internal Medicine Hematology & Oncology
DX: R09.89 Other specified symptoms and signs involving the circulatory and respiratory systems (principal)

== ENCOUNTER 2023-09-11 08:00 | Outpatient (CLI) | payer OTHER | END 2023-09-11 23:59 | disposition home or self-care (01) | LOC: PC 08:00 | PROVIDERS: ATTEND Nurse Practitioner Adult Health | DX: Z51.5 Encounter for palliative care (principal); C78.00 Secondary malignant neoplasm of unspecified lung; C79.81 Secondary malignant neoplasm of breast; Z85.528 Personal history of other malignant neoplasm of kidney; N76.0 Acute vaginitis; K12.31 Oral mucositis (ulcerative) due to antineoplastic therapy; T45.1X5A Adverse effect of antineoplastic and immunosuppressive drugs, initial encounter; Z90.5 Acquired absence of kidney; R53.83 Other fatigue; F41.9 Anxiety disorder, unspecified; Z79.899 Other long term (current) drug therapy; Z60.0 Problems of adjustment to life-cycle transitions | CPT/HCPCS: 99215 ==

== ENCOUNTER 2023-10-23 14:10 | Outpatient (CLI) | payer MEDICARE, OTHER | END 2023-10-23 23:59 | disposition home or self-care (01) | LOC: PC 14:10 | PROVIDERS: ATTEND Nurse Practitioner Adult Health | DX: Z51.5 Encounter for palliative care (principal); C64.2 Malignant neoplasm of left kidney, except renal pelvis; C78.00 Secondary malignant neoplasm of unspecified lung; C79.81 Secondary malignant neoplasm of breast; T45.1X5A Adverse effect of antineoplastic and immunosuppressive drugs, initial encounter; K12.31 Oral mucositis (ulcerative) due to antineoplastic therapy; R53.83 Other fatigue; M54.9 Dorsalgia, unspecified; R25.2 Cramp and spasm | CPT/HCPCS: 99215 ==

== ENCOUNTER 2023-11-01 08:00 | Outpatient (CLI) | payer MEDICARE, OTHER | END 2023-11-01 23:59 | disposition home or self-care (01) | LOC: PC 08:00 | PROVIDERS: ATTEND Nurse Practitioner Adult Health | DX: Z51.5 Encounter for palliative care (principal); C79.00 Secondary malignant neoplasm of unspecified kidney and renal pelvis | CPT/HCPCS: 99426 ==

== ENCOUNTER 2023-11-13 08:00 | Outpatient (CLI) | payer MEDICARE, OTHER | END 2023-11-13 23:59 | disposition home or self-care (01) | LOC: PC 08:00 | PROVIDERS: ATTEND Nurse Practitioner Adult Health | DX: Z51.5 Encounter for palliative care (principal); C64.2 Malignant neoplasm of left kidney, except renal pelvis; C78.00 Secondary malignant neoplasm of unspecified lung; C79.81 Secondary malignant neoplasm of breast; R07.89 Other chest pain; M54.9 Dorsalgia, unspecified; R05.3 Chronic cough; R53.83 Other fatigue; Z79.899 Other long term (current) drug therapy | CPT/HCPCS: 99215 ==

== ENCOUNTER 2023-11-25 12:46 | Outpatient (CLI) | payer MEDICARE, OTHER | END 2023-11-25 23:59 | disposition critical access hospital (66) | LOC: EMS 12:46 | DX: R04.0 Epistaxis (principal); Z79.01 Long term (current) use of anticoagulants | CPT/HCPCS: A0425; A0429 ==

== ENCOUNTER 2023-11-25 13:05 | Emergency (ER) | payer MEDICARE, OTHER ==
--- NOTE | 2023-11-25 14:13 | ED Physician Documentation ---
History of Present Illness - Stated complaint Stated Complaint: NOSEBLEED - Chief complaint Chief Complaint: Heent - History obtained from History obtained from: Patient - History of Present Illness Timing: Today Pain level max: 0 Pain level now: 0 - Additonal information Additional information: Patient is a 68-year-old female who recently got placed on Plavix after having stents for an DE. She states she has had bruising since that time. She states today she had a nosebleed at home, initially stopped with pressure, but when she bent over again started to have the bleeding again. The nosebleed is on the right side. No pain. No lightheadedness or dizziness. No shortness of breath. Has not had similar symptoms previously. She was brought in by EMS. There is no active bleeding at this time. Has a nose clamp on. 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: None : Incontinence, Other HEENT: Chronic vision loss Psych: None Musculoskeletal: None Derm: None - Past Surgical History Past Surgical History: Yes General: Cholecystectomy, Colonoscopy, EGD, Other Cardiovascular: Coronary stent - Present Medications Home Medications: Ambulatory Orders Medication Instructions Recorded Confirmed Felodipine [Felodipine ER] 5 mg PO DAILY 03/05/16 08/28/23 Tolterodine Tartrate [Detrol LA] 4 mg PO DAILY 03/05/16 08/28/23 Calcium Carbonate [Calcium] 600 mg PO BID 05/02/21 08/28/23 Cranberry Fruit Extract [Cranberry] 500 mg PO BID 05/02/21 08/28/23 Cyanocobalamin (Vitamin B-12) 1,000 mcg PO DAILY 05/02/21 08/28/23 [Vitamin B-12] Lactobacillus Combination No.4 1 each PO DAILY 05/02/21 08/28/23 [Probiotic] Meclizine HCl [Motion Sickness] 25 mg PO TID PRN 05/02/21 08/28/23 Melatonin 30 mg PO QPM 05/02/21 08/28/23 Omeprazole 20 mg PO DAILY 05/02/21 08/28/23 Turmeric Root Extract [Turmeric] 500 mg PO DAILY 05/02/21 08/28/23 Losartan Potassium 25 mg PO DAILY 06/06/22 08/28/23 ondansetron HCL [Ondansetron HCl] 8 mg PO BID PRN #30 tablet 08/01/22 08/28/23 Lenvatinib Mesylate [Lenvima] 10 mg PO DAILY 10/03/22 08/28/23 dexAMETHasone [Dexamethasone] 0.5 mg PO Q6H PRN 30 Days #600 ml 03/27/23 08/28/23 Codeine Phosphate/Guaifenesin 5 ml PO Q6H PRN 7 Days #140 ml 05/15/23 08/28/23 [Codeine-Guaifen 10-100 mg/5 ml] - Allergies Allergies/Adverse Reactions: Allergies Allergy/AdvReac Type Severity Reaction Status Date / Time No Known Drug Allergies Allergy Verified 11/25/23 13:25 - Social History Does the pt smoke?: No Smoking Status: Never smoker Does the pt drink ETOH?: Yes Does the pt have substance abuse?: No - Immunizations Immunizations are current?: Yes - POLST Patient has POLST: No PD ED PE NORMAL - Vitals Vital signs reviewed: Yes - General General: Alert and oriented X 3, No acute distress - HEENT HEENT: Moist mucous membranes, Pharynx benign, Other (small amount of dried blood in the R nare. No active bleeding. ) - Neck Neck: Supple, no meningeal sign - Cardiac Cardiac: RRR, Strong equal pulses - Respiratory Respiratory: No respiratory distress, Clear bilaterally - Derm Derm: Warm and dry - Neuro Neuro: Alert and oriented X 3 - Psych Psych: Normal mood, Normal affect Results - Vitals Vitals: Oxygen O2 Source Room air PD Medical Decision Making - ED course Complexity details: re-evaluated patient, considered differential, d/w patient ED course: Patient with epistaxis today. No active bleeding in the emergency department. She was given Afrin and tranexemic acid. Pressure was applied to the nose in the emergency department. Observed with no further bleeding. No indication for cauterization. Patient is on Plavix, recommend that she use a small amount of Vaseline in the nose to help moisturize her nose. Patient counseled regarding signs and symptoms for which I believe an urgent re-evaluation would be necessary. Patient with good understanding of and agreement to plan and is comfortable going home at this time. This document was made in part using voice recognition software. While efforts are made to proofread this document, sound alike and grammatical errors may occur. Departure - Departure Disposition: 01 Home, Self Care Clinical Impression: Epistaxis Condition: Good Instructions: ED Nosebleed Follow-Up: Liz Martinez ARNP [Primary Care Provider] - As Needed Comments: Please follow-up with your doctor for further care. Do not blow or pick your nose for the next 2 days as this will likely dislodge the clot and could cause recurrent bleeding. I would recommend using Afrin for the next 2 days. Use this twice a day. You can also put small amounts of Vaseline in your nose to help moisten the area. Please return if you worsen. Forms: PCP List Discharge Date/Time: 11/25/23 15:32
[2023-11-25] MEDS: TRANEXAMIC ACID 1,000 MG/10 ML VIAL NAS STA (14:22)
[2023-11-25] MEDS: OXYMETAZOLINE HCL 100 SPRAYS BOTTLE NAS STA (14:23)
[2023-11-25 15:38] VITALS: BP 130/88; O2SAT 98
== END 2023-11-25 15:32 | disposition home or self-care (01) ==
LOC: EDUNIT# → ED 13:05
DX: R04.0 Epistaxis (principal); Z79.02 Long term (current) use of antithrombotics/antiplatelets
CPT/HCPCS: 99281; 99283; A9270

== ENCOUNTER 2023-12-01 08:00 | Outpatient (CLI) | payer MEDICARE, OTHER | END 2023-12-01 23:59 | disposition home or self-care (01) | LOC: PC 08:00 | PROVIDERS: ATTEND Nurse Practitioner Adult Health | DX: Z51.5 Encounter for palliative care (principal); C64.9 Malignant neoplasm of unspecified kidney, except renal pelvis | CPT/HCPCS: 99426 ==

== ENCOUNTER 2023-12-30 08:00 | Outpatient (CLI) | payer MEDICARE, OTHER | END 2023-12-30 23:59 | disposition home or self-care (01) | LOC: PC 08:00 | PROVIDERS: ATTEND Nurse Practitioner Adult Health | DX: Z51.5 Encounter for palliative care (principal); C79.81 Secondary malignant neoplasm of breast; C78.00 Secondary malignant neoplasm of unspecified lung; Z85.528 Personal history of other malignant neoplasm of kidney; Z92.29 Personal history of other drug therapy; I25.2 Old myocardial infarction; Z79.899 Other long term (current) drug therapy; Z79.02 Long term (current) use of antithrombotics/antiplatelets; Z79.82 Long term (current) use of aspirin; R20.0 Anesthesia of skin; R53.83 Other fatigue; M25.551 Pain in right hip; J32.9 Chronic sinusitis, unspecified; K59.03 Drug induced constipation; Z71.89 Other specified counseling | CPT/HCPCS: 99215 ==

== ENCOUNTER 2024-01-29 11:30 | Outpatient (CLI) | payer MEDICARE, OTHER | END 2024-01-29 23:59 | disposition home or self-care (01) | LOC: PC 11:30 | PROVIDERS: ATTEND Nurse Practitioner Adult Health | DX: Z51.5 Encounter for palliative care (principal); N81.10 Cystocele, unspecified; M25.551 Pain in right hip; F41.9 Anxiety disorder, unspecified; R19.7 Diarrhea, unspecified; R53.83 Other fatigue; R63.0 Anorexia; R43.8 Other disturbances of smell and taste; R68.81 Early satiety; R11.0 Nausea; E03.2 Hypothyroidism due to medicaments and other exogenous substances; K12.31 Oral mucositis (ulcerative) due to antineoplastic therapy; T45.1X5A Adverse effect of antineoplastic and immunosuppressive drugs, initial encounter; Z71.89 Other specified counseling; Z79.899 Other long term (current) drug therapy | CPT/HCPCS: 99215 ==

== ENCOUNTER 2024-02-13 09:31 | Outpatient (CLI) | payer MEDICARE, OTHER ==
[2024-02-13 09:43] LABS: BASOPHILS # (AUTO) 0.1 10^3/uL (0.0-0.1); EOSINOPHILS # (AUTO) 0.2 10^3/uL (0.0-0.7); EOSINOPHILS % (AUTO) 2.9 %; HGB - HEMOGLOBIN 15.4 g/dL (12.0-16.0); LYMPHOCYTES # (AUTO) 1.6 10^3/uL (1.5-3.5); LYMPHOCYTES % (AUTO) 26.5 %; MEAN CORPUSCULAR HEMOGLOBIN 25.4 pg (27.0-31.0); MEAN CORPUSCULAR HGB CONC 31.4 g/dL (32.0-36.0); MEAN CORPUSCULAR VOLUME 80.7 fL (81.0-99.0); MEAN PLATELET VOLUME 8.6 fL (7.9-10.8); MONOCYTES # (AUTO) 0.4 10^3/uL (0.0-1.0); MONOCYTES % (AUTO) 6.5 %; NEUTROPHILS # (AUTO) 3.9 10^3/uL (1.5-6.6); NEUTROPHILS % (AUTO) 62.9 %; PLT - PLATELET COUNT 278 10^3/uL (130-450); RED BLOOD COUNT 6.07 10^6/uL (4.20-5.40); WHITE BLOOD COUNT 6.2 x10^3/uL (4.8-10.8)
[2024-02-13 10:00] LABS: ALBUMIN/GLOBULIN RATIO 1.3 (1.0-2.2); BILIRUBIN,TOTAL 0.7 mg/dL (0.2-1.0); CALCIUM 9.7 mg/dL (8.5-10.3); CREATININE 1.1 mg/dL (0.6-1.3); MAGNESIUM 1.6 mg/dL (1.7-2.3); TOTAL PROTEIN 7.2 g/dL (6.4-8.9)
== END 2024-02-13 09:32 | disposition home or self-care (01) ==
LOC: LAB 09:31
PROVIDERS: ATTEND Nurse Practitioner Adult Health
DX: C79.00 Secondary malignant neoplasm of unspecified kidney and renal pelvis (principal); R19.7 Diarrhea, unspecified
CPT/HCPCS: 36415; 80053; 83735; 85025